=== PATIENT | male | born 1995 | race Caucasian/White ===

== ENCOUNTER 2016-07-07 19:47 | Emergency (ER) | payer OTHER | END 2016-07-07 22:12 | disposition home or self-care (01) | LOC: ER 19:47 | DX: G43.909 Migraine, unspecified, not intractable, without status migrainosus (principal); Z88.1 Allergy status to other antibiotic agents; Z88.8 Allergy status to other drugs, medicaments and biological substances | CPT/HCPCS: 96372; J2270; J2550 ==